=== PATIENT | male | born 1945 | race Caucasian/White ===

== ENCOUNTER 2017-03-28 12:35 | Inpatient (IN) | payer OTHER ==
[2017-03-28] MEDS ORDERED: NON-FORMULARY MEDICATION (Potassium Chloride [Potassium Chloride] 20 MEQ) PO PRN ×22 (13:08)
[2017-03-28] MEDS ORDERED: K-DUR PO PRN (13:20)
[2017-03-28 13:29] LABS: BASOPHILS % (AUTO) 0.3 % (0.0-3.0); EOSINOPHILS # (AUTO) 0.1 K/ul (0.0-0.7); EOSINOPHILS % (AUTO) 0.7 % (0.0-7.0); HEMATOCRIT 43.4 % (42.0-52.0); HEMOGLOBIN 14.6 g/dl (14.0-18.0); IMMATURE GRANULOCYTE % (AUTO) 0.4 % (0.0-5.0); LYMPHOCYTES # (AUTO) 1.4 K/uL (0.60-3.4); LYMPHOCYTES % (AUTO) 11.6 (10.0-50.0); MEAN CORPUSCULAR HEMOGLOBIN 30.5 pg (27.0-31.0); MEAN CORPUSCULAR HGB CONC 33.6 (31.8-35.4); MEAN CORPUSCULAR VOLUME 90.8 fl (80.0-94.0); MONOCYTES # (AUTO) 1.3 K/uL (0.4-2.0); MONOCYTES % (AUTO) 10.8 (0-10); NEUTROPHILS % (AUTO) 76.2; PLATELET COUNT 138 10^3/uL (140-440); RED BLOOD COUNT 4.78 10^6/ul (4.70-6.10); WHITE BLOOD COUNT 11.85 K/ul (4.2-10.2)
[2017-03-28] MEDS: CLEOCIN PO SCH ×2 (14:00→21:42)
[2017-03-28 14:03] LABS: ALBUMIN 3.1 g/dL (3.4-5.0); ALBUMIN/GLOBULIN RATIO 0.94; BILIRUBIN,TOTAL 1.25 mg/dL (0.00-1.20); BUN/CREATININE RATIO 18.81; CALCIUM 9.1 mg/dL (8.2-10.2); CREATININE 1.01 mg/dL (0.60-1.10); TOTAL PROTEIN 6.4 g/dL (5.8-8.1)
[2017-03-28 14:16] VITALS: BMI 42.3
[2017-03-28] MEDS: BACTRIM DS 800/160 MG PO SCH ×2 (14:40→21:41)
[2017-03-28] MEDS: SINEMET 25-100 PO SCH ×2 (14:41→21:42)
--- NOTE | 2017-03-28 14:47 | US ---
EXAM: ULTRASOUND LOWER EXTREMITY VENOUS DOPPLER EXAM HISTORY: Leg edema. FINDINGS: Bilateral lower extremity venous Doppler exam. Real time holm-scale, Doppler spectral anal ysis and color-flow Doppler imaging performed. The veins targeted for evaluation include the common femoral, greater saphenous, profundus, femoral, popliteal, peroneal, anterior tibial and posterior ti bial. Right anterior tibial veins were not seen. The evaluated veins demonstrated normal spontaneous flow and compression without evidence of thrombosis. IMPRESSION: No venous thrombosis identified within the areas evaluated.
[2017-03-28] MEDS ORDERED: LEVODOPA PO SCH ×22 (15:00)
[2017-03-28] MEDS ORDERED: CARBIDOPA PO SCH ×22 (15:00)
[2017-03-28] MEDS: ROCEPHIN 1 GM in SODIUM CHLORIDE 50 ML IV SCH (15:14)
[2017-03-28] MEDS: BETAPACE PO SCH (21:41)
[2017-03-28] MEDS: ELIQUIS PO SCH (21:44)
[2017-03-28] MEDS ORDERED: TYLENOL PO PRN (21:45)
[2017-03-29] MEDS: CLEOCIN PO SCH ×3 (04:40→20:38)
[2017-03-29 05:54] LABS: BASOPHILS % (AUTO) 0.4 % (0.0-3.0); EOSINOPHILS # (AUTO) 0.1 K/ul (0.0-0.7); EOSINOPHILS % (AUTO) 0.6 % (0.0-7.0); HEMATOCRIT 43.1 % (42.0-52.0); HEMOGLOBIN 14.3 g/dl (14.0-18.0); IMMATURE GRANULOCYTE % (AUTO) 0.6 % (0.0-5.0); LYMPHOCYTES # (AUTO) 1.6 K/uL (0.60-3.4); LYMPHOCYTES % (AUTO) 14.1 (10.0-50.0); MEAN CORPUSCULAR HEMOGLOBIN 30.3 pg (27.0-31.0); MEAN CORPUSCULAR HGB CONC 33.2 (31.8-35.4); MEAN CORPUSCULAR VOLUME 91.3 fl (80.0-94.0); MONOCYTES # (AUTO) 1.3 K/uL (0.4-2.0); MONOCYTES % (AUTO) 11.5 (0-10); NEUTROPHILS # (AUTO) 8.1 K/ul (2.0-6.9); NEUTROPHILS % (AUTO) 72.8; PLATELET COUNT 141 10^3/uL (140-440); RED BLOOD COUNT 4.72 10^6/ul (4.70-6.10); WHITE BLOOD COUNT 11.17 K/ul (4.2-10.2)
[2017-03-29 06:19] LABS: ALBUMIN 3.1 g/dL (3.4-5.0); ALBUMIN/GLOBULIN RATIO 0.84; ANION GAP 13.3; BILIRUBIN,TOTAL 1.28 mg/dL (0.00-1.20); BUN/CREATININE RATIO 19.23; CALCIUM 9.3 mg/dL (8.2-10.2); CREATININE 1.04 mg/dL (0.60-1.10); POTASSIUM 4.3 mmol/L (3.5-5.1); TOTAL PROTEIN 6.8 g/dL (5.8-8.1)
[2017-03-29] MEDS ORDERED: TYLENOL PO PRN (08:13)
[2017-03-29] MEDS ORDERED: ATIVAN PO PRN (08:13)
[2017-03-29] MEDS: ELIQUIS PO SCH ×2 (08:51→20:39)
[2017-03-29] MEDS: SINEMET 25-100 PO SCH ×4 (08:51→20:39)
[2017-03-29] MEDS: BETAPACE PO SCH ×2 (08:51→20:38)
[2017-03-29] MEDS: ALPHA LIPOIC ACID 600 MG PO SCH (08:52)
[2017-03-29] MEDS: BACTRIM DS 800/160 MG PO SCH ×2 (08:52→20:39)
[2017-03-29] MEDS: ROCEPHIN 1 GM in SODIUM CHLORIDE 50 ML IV SCH (08:52)
[2017-03-29] MEDS: ARGININE 500 MG PO SCH (08:53)
[2017-03-29] MEDS: THIAMINE PO SCH (08:54)
[2017-03-29] MEDS: CYANOCOBALAMIN 1000 MG PO SCH (09:07)
[2017-03-29] MEDS ORDERED: NON-FORMULARY MEDICATION (Losartan Potassium 50 MG) PO SCH (09:15)
[2017-03-29] MEDS ORDERED: LASIX IVP STA (09:23)
[2017-03-29] MEDS: COZAAR PO SCH (09:28)
[2017-03-29] MEDS ORDERED: ZAROXOLYN PO SCH (11:00)
--- NOTE | 2017-03-29 11:00 | HP ---
DATE OF SERVICE: 03/28/17 REASON FOR HOSPITALIZATION/HISTORY OF PRESENT ILLNESS: Temperature 99.5this AM take Tylenol left knee left swelling/ red discoloration , tender, redness behind knee. Onset 3.6 hours. Gained 5 pounds. Went to walking in clinic last night-Yesterday temperature 102 gave Rocephin and Bactrim ([place]). Shortness of breath yesterday. REVIEW OF SYSTEMS: CONSTITUTIONAL: Fever and fatigue. HEENT: No sinus drainage, no sore throat. RESPIRATORY: No cough, no congestion. CARDIOVASCULAR: No atypical chest pain for coronary artery disease. No angina , CHF symptoms, palpitations. Shortness of breath. GASTROINTESTINAL: No melena or abdominal pain. No GERD. GENITOURINARY: No hematuria, no prostatism, no polyuria. INSURANCE ASSISTANT: No blackout, no dizziness, no headache, no double vision. MUSCULOSKELETAL: Osteoarthritis pain, no joint swelling. ENDOCRINE: No weight loss, Weight gain, 5 pounds. SKIN: Not dry, no rash. PSYCHIATRIC: Not anxious, no depression, no suicidal thoughts, no homicidal thoughts. SOCIAL HISTORY: Marital Status: . Alcohol Usage: No. Tobacco Usage: No. Family History: father , mother . SURGICAL HISTORY: Heart cath Right hip replacement 2 years ago. MEDICAL HISTORY: Sleep apnea-CPAP Atrial fibrillation CHF Hypertension LVH Dyslipidemia Metabolic Syndrome Parkinson's syndrome Diabetes mellitus type 2 MEDICATIONS: Carbidopa-Levo 25-100 one tablet PO three times a day Eliquis 5mg PO twice a day Metolazone 2.5mg PO MOWEFR Potassium Chloride 20mew PO twice a day PRN Alpha lipoic acid 600mg PO daily Vitamin B12 1,000mg PO daily I-Arginine 500mg PO daily Sotalol 40mg PO twice a day Thiamine 100mg PO daily Cozaar 50mg PO daily ALLERGIES: No known allergies PHYSICAL EXAMINATION: V/S: Pulse 80, blood pressure 140/60, temperature 97.2, pulse ox 97.9. GENERAL APPEARANCE: Oriented times three. HEENT: Normal. NECK: No JVP, no bruits. RESPIRATORY: Lungs are clear. CARDIOVASCULAR: S1, S2, no S3, no murmurs. No cyanosis, clubbing. No ascites. GI/ABDOMEN: No tenderness. Bowel sounds are active. EXTREMITIES: Pulses +1, equal. Left lower extremity +1 edema, red, purple discoloration, anterior childers, slight red, tenderness behind left knee. INSURANCE ASSISTANT: Deep tendon reflexes, sensory, motor and gait all normal. RECTAL: Refused colonoscopy/PELVIC: Colocare refused/PROSTATE: 4-17 (2.0). ASSESSMENT: 1. Left leg swelling 2. Left leg cellulitis 3. Fever 4. History of atrial fibrillation 5. CHF 6. Neuropathy 7. Hypertension 8. LVH 9. 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 Admit regular 2. EKG today 3. Telemetry x2 hours 4. Elevate legs 5. Diet regular 6. CBC and CMP today and QAM daily 7. Blood cultures x2 8. Rocephin 1 gram IV now and QAM 9. Clindamycin 300mg PO Q 8 hours 10.Bactrim DS twice a day and one now 11.Venous scan both lower extremities 12.Continue all medications (home) TIME SPENT: More than 70 minutes. MTDD
--- NOTE | 2017-03-29 12:48 | PCM.PROG ---
Attending Provider: ATTENDING PROVIDER: Dr. JUNIOR BARBOSA DATE OF SERVICE: 03/29/17 SUBJECTIVE: This 71 year old WHITE/ M was hospitalized 03/28/17. The patient is seen with Dalia, Nurse Practitioner. The patient is alert, sitting in chair. The patient's pain in leg slightly improved. Left leg has swelling and redness of lower leg slightly worse. He had a fever of 101 last night. REVIEW OF SYSTEMS: CONSTITUTIONAL: Intermittent fever. No night sweats. No fatigue, malaise, lethargy. HEENT: Eyes: No visual changes. No eye pain. No eye discharge. ENT: No runny nose. No epistaxis. No sinus pain. No odynophagia. No congestion. RESPIRATORY: No cough, no congestion. No hemoptysis. No shortness of breath. CARDIOVASCULAR: No angina symptoms. No CHF symptoms. No atypical chest pain for CAD. No palpitations. No orthopnea.. GASTROINTESTINAL: No abdominal pain. No nausea or vomiting. No diarrhea or constipation. No hematemesis. No hematochezia. GENITOURINARY: No urgency. No frequency. No dysuria. No hematuria. No obstructive symptoms. No discharge. No pain. No significant abnormal bleeding. MUSCULOSKELETAL: No musculoskeletal pain; no joint swelling. NEUROLOGICAL: Awake, alert, oriented to time, place and person. No headache. No neck pain. No syncope. No seizures. No dizziness. PSYCHIATRIC: Not anxious. No depression. No suicidal thoughts. No homicidal thoughts. SKIN: No rash. Redness and swelling left lower extremity. ENDOCRINE: No unexplained weight loss. No weight gain. HEMATOLOGIC/LYMPHATIC: No anemia. No purpura. No petechiae. No prolonged or excessive bleeding. No palpable lymph nodes. PHYSICAL EXAMINATION: GENERAL: The patient is awake, alert and oriented, sitting in chair in no distress. VITAL SIGNS: Temperature 97.9 F, Pulse 67, Respiratory Rate 17, BP 131/78, Pulse Ox 95% HEENT: Head normocephalic, atraumatic. Eyes: Extraocular muscles are intact. Pupils are equal, round and reactive to light and accommodation. Ears: No lesions. Nose appeared normal. Throat: No exudate or erythema. NECK: Supple. No JVD, no carotid bruit. No lymphadenopathy or thyromegaly. LUNGS: Clear to auscultation bilaterally with diminished breath sounds. Percussion note normal. Chest symmetrical. HEART: S1, S2, no S3. No murmurs. No cyanosis or clubbing. No ascites. Pulses: Dorsalis pedis and posterior tibial pulses +1 to +2 both sides. ABDOMEN: Soft. Non-tender. Bowel sounds active. No CVA tenderness. No mass felt. EXTREMITIES: Left lower extremity +1 to +2 edema, reddish discoloration below knee to ankle. Full range of motion of all extremities, equal. NEUROLOGIC: No focal deficit. Cranial nerves II through XII are grossly intact. No headache, no double vision or headache. SKIN: Warm and dry Intact. Turgor-normal. LYMPHATIC: No palpable lymph nodes/no lymphedema. MUSCULOSKELETAL: Normal joints with no swelling. Muscle tone is normal. LAB REVIEW: 03/29/17 05:30 03/29/17 05:30 03/29/17 05:30: Sodium 138, Potassium 4.3, Chloride 101, Carbon Dioxide 28, Anion Gap 13.3, BUN 20 H, Creatinine 1.04, Estimated GFR (MDRD) 71.00, BUN/ Creatinine Ratio 19.23, Glucose 119 H, Calcium 9.3, Total Bilirubin 1.28 H, AST 20, ALT 25, Alkaline Phosphatase 60, Total Protein 6.8, Albumin 3.1 L, Globulin 3.7, Albumin/Globulin Ratio 0.84 03/29/17 05:30: WBC 11.17 H, RBC 4.72, Hgb 14.3, Hct 43.1, MCV 91.3, MCH 30.3, MCHC 33.2, RDW Coeff of Nabor 15.1 H, Plt Count 141, Immature Gran % (Auto) 0.6, Neut % (Auto) 72.8, Lymph % (Auto) 14.1, Lander % (Auto) 11.5 H, Eos % (Auto) 0.6 , Baso % (Auto) 0.4, Immature Gran # (Auto) 0.1, Neut # 8.1 H, Lymph # 1.6, Lander # 1.3, Eos # 0.1, Baso # 0.0 03/28/17 13:24: Sodium 138, Potassium 4.0, Chloride 102, Carbon Dioxide 25, Anion Gap 15.0, BUN 19 H, Creatinine 1.01, Estimated GFR (MDRD) 73.00, BUN/ Creatinine Ratio 18.81, Glucose 98, Calcium 9.1, Total Bilirubin 1.25 H, AST 27 , ALT 20, Alkaline Phosphatase 64, Total Protein 6.4, Albumin 3.1 L, Globulin 3.3, Albumin/Globulin Ratio 0.94 03/28/17 13:24: WBC 11.85 H, RBC 4.78, Hgb 14.6, Hct 43.4, MCV 90.8, MCH 30.5, MCHC 33.6, RDW Coeff of Nabor 15.2 H, Plt Count 138 L, Immature Gran % (Auto) 0.4 , Neut % (Auto) 76.2, Lymph % (Auto) 11.6, Lander % (Auto) 10.8 H, Eos % (Auto) 0.7, Baso % (Auto) 0.3, Immature Gran # (Auto) 0.1, Neut # 9.0 H, Lymph # 1.4, Lander # 1.3, Eos # 0.1, Baso # 0.0 ASSESSMENT: 1. LEFT LEG CELLULITIS AND FEVER. PLAN: 1. Continue Tylenol 650 mg q.6 p.r.n. 2. Ativan 1 mg q.h.s p.r.n. 3. Continue Zaroxolyn Plan and coordination of the patient's care discussed in the presence of Top Frame Maker and nurse. CONDITION: Stable SCRIBED BY: NILESH CHRISTINE Mental Health Director scribed while in presence of service performed by Dr. JUNIOR BARBOSA/DALIA DECKER APRN on 03/29/17 ([id number])
[2017-03-30] MEDS: CLEOCIN PO SCH (04:38)
[2017-03-30] MEDS ORDERED: LASIX IVP ONE (05:00)
[2017-03-30 05:25] VITALS: BP 136/81; TEMP 97.7
[2017-03-30 05:29] LABS: BASOPHILS % (AUTO) 0.5 % (0.0-3.0); EOSINOPHILS # (AUTO) 0.1 K/ul (0.0-0.7); EOSINOPHILS % (AUTO) 1.8 % (0.0-7.0); HEMATOCRIT 45.1 % (42.0-52.0); HEMOGLOBIN 14.8 g/dl (14.0-18.0); IMMATURE GRANULOCYTE % (AUTO) 0.8 % (0.0-5.0); LYMPHOCYTES # (AUTO) 1.8 K/uL (0.60-3.4); LYMPHOCYTES % (AUTO) 22.6 (10.0-50.0); MEAN CORPUSCULAR HEMOGLOBIN 29.8 pg (27.0-31.0); MEAN CORPUSCULAR HGB CONC 32.8 (31.8-35.4); MEAN CORPUSCULAR VOLUME 90.9 fl (80.0-94.0); NEUTROPHILS # (AUTO) 4.8 K/ul (2.0-6.9); NEUTROPHILS % (AUTO) 61.3; PLATELET COUNT 150 10^3/uL (140-440); RED BLOOD COUNT 4.96 10^6/ul (4.70-6.10); WHITE BLOOD COUNT 7.75 K/ul (4.2-10.2)
[2017-03-30 05:59] LABS: ALBUMIN 3.3 g/dL (3.4-5.0); ALBUMIN/GLOBULIN RATIO 0.83; ANION GAP 15.9; BILIRUBIN,TOTAL 1.03 mg/dL (0.00-1.20); BUN/CREATININE RATIO 16.41; CALCIUM 9.9 mg/dL (8.2-10.2); CREATININE 1.34 mg/dL (0.60-1.10); POTASSIUM 3.9 mmol/L (3.5-5.1); TOTAL PROTEIN 7.3 g/dL (5.8-8.1)
[2017-03-30] MEDS ORDERED: NON-FORMULARY MEDICATION (Losartan Potassium 50 MG) PO SCH (09:00)
[2017-03-30] MEDS: BACTRIM DS 800/160 MG PO SCH (09:56)
[2017-03-30] MEDS: ALPHA LIPOIC ACID 600 MG PO SCH (09:56)
[2017-03-30] MEDS: BETAPACE PO SCH (09:56)
[2017-03-30] MEDS: ARGININE 500 MG PO SCH (09:56)
[2017-03-30] MEDS: SINEMET 25-100 PO SCH (09:57)
[2017-03-30] MEDS: ROCEPHIN 1 GM in SODIUM CHLORIDE 50 ML IV SCH (09:57)
[2017-03-30] MEDS: ELIQUIS PO SCH (09:57)
[2017-03-30] MEDS: COZAAR PO SCH (09:57)
[2017-03-30] MEDS: CYANOCOBALAMIN 1000 MG PO SCH (09:57)
[2017-03-30] MEDS: THIAMINE PO SCH (09:58)
[2017-04-03 02:09] LABS: IGG P18 AB Absent (.); IGG P23 AB Absent (.); IGG P28 AB Absent (.); IGG P30 AB Absent (.); IGG P39 AB Absent (.); IGG P41 AB Absent (.); IGG P45 AB Absent (.); IGG P58 AB Absent (.); IGG P66 AB Absent (.); IGG P93 AB Absent (.); IGM P39 AB Absent (.); IGM P41 AB Absent (.); LYME IGG WB INTERP Negative (.); LYME IGM WB INTERP Negative (.)
--- NOTE | 2017-04-03 09:22 | PN ---
DATE OF SERVICE: 03/29/17 SUBJECTIVE: 71 year old white male was hospitalized with left leg cellulitis. The patient's cellulitis is a lot better. The patient had fever last night. The patient is on triple antibiotics. He is feeling better. PHYSICAL EXAMINATION: HEENT: Head normocephalic, atraumatic. Eyes: Extraocular muscles are intact. Pupils are equal, round and reactive to light and accommodation. Ears: No lesions. Nose appeared normal. Throat: No exudate or erythema. NECK: Supple. No JVD, no carotid bruit. No lymphadenopathy or thyromegaly. LUNGS: Clear to auscultation. Percussion note normal. Chest symmetrical. HEART: S1, S2, no S3. No murmurs. No cyanosis or clubbing. No ascites. Pulses: Dorsalis pedis and posterior tibial pulses +1 to +2 both sides. ABDOMEN: Soft. Nontender. Bowel sounds active. No CVA tenderness. No mass felt. EXTREMITIES: No edema. Full range of motion of all extremities, equal. Left leg redness in now contained. It has puckering of the skin, No shinny or film feeling has gone. Calf is lose. The patient's venous scan was negative. NEUROLOGIC: No focal deficit. Cranial nerves II through XII are grossly intact. No headache, no double vision or headache. SKIN: Not dry. Intact. Turgor - normal. LYMPHATIC: No palpable lymph nodes/no lymphedema. MUSCULOSKELETAL: Normal joints with no swelling. Muscle tone is normal. PLAN: 1. Continue antibiotics 2. Elevate legs 3. The patient is strongly advised to stay here for a few days but he insists on going home tomorrow and probably he would. The patient was seen and examined with the Nurse Practitioner. TIME SPENT: More than 30 minutes. Plan and coordination of the patient's care discussed in the presence of nurse. HIGINIO
--- NOTE | 2017-04-03 10:41 | PN ---
DATE OF SERVICE: 03/30/17 SUBJECTIVE: 71 year old white male hospitalized with cellulitis of the left leg. The patient 's condition has improved and he doesn't have pain, fever or chills anymore. REVIEW OF SYSTEMS: CONSTITUTIONAL: No night sweats. No fatigue, malaise, lethargy. No fever or chills. HEENT: Eyes: No visual changes. No eye pain. No eye discharge. ENT: No runny nose. No epistaxis. No sinus pain. No sore throat. No odynophagia. No congestion. RESPIRATORY: No cough, no congestion. No hemoptysis. No shortness of breath. CARDIOVASCULAR: No angina symptoms. No CHF symptoms. No atypical chest pain for CAD. No palpitations. No orthopnea. GASTROINTESTINAL: No abdominal pain. No nausea or vomiting. No diarrhea or constipation. No hematemesis. No hematochezia. GENITOURINARY: No urgency. No frequency. No dysuria. No hematuria. No obstructive symptoms. No discharge. No pain. No significant abnormal bleeding. MUSCULOSKELETAL: No musculoskeletal pain; no joint swelling. NEUROLOGICAL: No headache. No neck pain. No syncope. No seizures. No dizziness. PSYCHIATRIC: Not anxious. No depression. No suicidal thoughts. No homicidal thoughts. SKIN: No rash. No lesions. No wounds. ENDOCRINE: No unexplained weight loss. No weight gain. HEMATOLOGIC/LYMPHATIC: No anemia. No purpura. No petechiae. No prolonged or excessive bleeding. No palpable lymph nodes. PHYSICAL EXAMINATION: GENERAL: The patient is oriented to time, place and person. VITAL SIGNS: Temperature 97.7, pulse 58, respiratory rate 16, blood pressure 136/81 and pulse ox 98%. HEENT: Head normocephalic, atraumatic. Eyes: Extraocular muscles are intact. Pupils are equal, round and reactive to light and accommodation. Ears: No lesions. Nose appeared normal. Throat: No exudate or erythema. NECK: Supple. No JVD, no carotid bruit. No lymphadenopathy or thyromegaly. LUNGS:Decreased breath sounds but clear to auscultation. Percussion note normal. Chest symmetrical. HEART: S1, S2, no S3. No murmurs. No cyanosis or clubbing. No ascites. Pulses: Dorsalis pedis and posterior tibial pulses +1 to +2 both sides. ABDOMEN: Soft. Nontender. Bowel sounds active. No CVA tenderness. No mass felt. EXTREMITIES: No edema. Full range of motion of all extremities, equal. Left leg the inflammation and redness on the lateral lower half practically has disappeared with normal puckering of the skin with dark pigmentation, left which is normal looking most of the area, no drainage at all. NEUROLOGIC: No focal deficit. Cranial nerves II through XII are grossly intact. No headache, no double vision or headache. SKIN: Not dry. Intact. Turgor - normal. LYMPHATIC: No palpable lymph nodes/no lymphedema. MUSCULOSKELETAL: Normal joints with no swelling. Muscle tone is normal. LABS: WBC 7,700 normal differential, hgb 14, hct 45, creatinine 1.31, BUN 22 ASSESSMENT: 1. Cellulitis, left lower extremity is under control 2. Cardiovascular status is stable. PLAN: 1. Discharge the patient home. 2. The patient is to be taking Lasix PRN 2-3 times a week along with Potassium tablets. 3. Septra DS to be taken 7 days, the patient has it at home. 4. Clindamycin is new medication 300mg three times a day for 5 days. CONDITION: Stable. TIME SPENT: More than 30 minutes. Plan and coordination of the patient's care discussed in the presence of nurse. HIGINIO
--- NOTE | 2017-04-03 10:56 | DS ---
DATE OF SERVICE: 03/30/17 FINAL DIAGNOSIS: 1. Left leg cellulitis 2. Fever 3. History of atrial fibrillation 4. CHF 5. Neuropathy 6. Hypertension 7. LVH 8. Dyslipidemia 9. 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 Advised to elevate the legs. Rest. If fever or chills happen or swelling go the emergency room as soon as possible. Come back on Saturday for followup. MEDICATIONS AT DISCHARGE: Carbidopa-Levo 25-100mg Odt one tablet three times a day Eliquis 5mg PO twice a day Metolazone 2.5mg PO MOWEFR Alpha Lipoic acid 600mg PO daily Vitamin B12 1,000mg PO daily I-Arginine 500mg PO daily Sotalol 40mg PO twice a day Thiamine 100mg PO daily Cozaar 50mg PO daily Cleocin 300mg PO Q 8 hours Bactrim DS one tablet PO Q 12 hours Lasix 40mg PO three times a day Per week Potassium chloride 10meq PO twice a day PRN NEW PRESCRIPTIONS: Lasix 40mg PO PRN 2-3 a week as needed for leg swelling K-tab to be taken with Lasix PRN Septra DS twice a day for 7 days the patient has it at home given by Deejay Clindamycin 300mg PO three times a day for 5 days. DIET INSTRUCTIONS: Cardiac diet ACTIVITY: Elevate legs SMOKING: Never smoker DISEASE SPECIFIC EDUCATION: New medications Followup Elevate legs HOSPITAL COURSE: 71 year old white male hospitalized with acute cellulitis with fever and chills. The patient's condition improved with IV antibiotics Rocephin 1gram along with Clindamycin and Septra. The patient's legs were elevated and IV Lasix was given for swelling. The patient's condition has improved remarkably within 48 hours. For 36 hours prior to discharge the patient was practically afebrile and felt a lot better. The left leg calf muscle was loose and venous scan was negative. Instruction were given as mention above for the followup which is to be Saturday. Advised to rest keeping the legs elevated. Also advised to go to the emergency room incase of fever, chills and more swelling. The patient's BMI is 42 he is morbidly obese. He is strongly advised to lose weight. CONDITION: Stable TIME SPENT: More than 60 minutes. MTDD
== END 2017-03-30 09:25 | disposition home or self-care (01) | DRG 603 ==
LOC: MEDSURG A 12:35
PROVIDERS: ADMIT Internal Medicine; ATTEND Internal Medicine
DX: L03.116 Cellulitis of left lower limb (principal); Z68.41 Body mass index [BMI] 40.0-44.9, adult; R50.9 Fever, unspecified; I48.91 Unspecified atrial fibrillation; I50.9 Heart failure, unspecified; G62.9 Polyneuropathy, unspecified; I10 Essential (primary) hypertension; I51.7 Cardiomegaly; I12.9 Hypertensive chronic kidney disease with stage 1 through stage 4 chronic kidney disease, or unspecified chronic kidney disease; E11.22 Type 2 diabetes mellitus with diabetic chronic kidney disease; N18.9 Chronic kidney disease, unspecified; E78.5 Hyperlipidemia, unspecified; E88.81 Metabolic syndrome and other insulin resistance; E66.01 Morbid (severe) obesity due to excess calories; M47.9 Spondylosis, unspecified; G47.30 Sleep apnea, unspecified; G20 Parkinson's disease; Z79.01 Long term (current) use of anticoagulants; Z79.899 Other long term (current) drug therapy
CPT/HCPCS: 36415; 80053; 85025; 86617; 87040; 87798; 93005; 93010

== ENCOUNTER 2017-08-23 12:53 | Inpatient (IN) | payer OTHER ==
[2017-08-23 13:16] VITALS: BMI 42.0
[2017-08-23] MEDS ORDERED: TUSSIONEX PO PRN (13:33)
[2017-08-23] MEDS ORDERED: ATROPINE SULFATE PFS IVP PRN (13:33)
[2017-08-23] MEDS ORDERED: VISTARIL INJ IM PRN (13:33)
[2017-08-23] MEDS ORDERED: MORPHINE 4 MG/ML VIAL IVP PRN (13:33)
[2017-08-23] MEDS ORDERED: NITROSTAT SL PRN (13:33)
[2017-08-23] MEDS ORDERED: TYLENOL PO PRN (13:33)
[2017-08-23] MEDS ORDERED: TUSSIONEX PO STA (13:33)
[2017-08-23] MEDS ORDERED: LEVODOPA PO SCH (15:00)
[2017-08-23] MEDS ORDERED: CARBIDOPA PO SCH (15:00)
--- NOTE | 2017-08-23 15:09 | DI ---
EXAM: Chest one view, frontal view only. HISTORY: Cough. COMPARISON: None available. FINDINGS: The heart size is normal. There is no pulmonary vascular congestion. The lungs are clear . No pleural effusion or pneumothorax is seen. No acute osseous abnormality is identified. IMPRESSION: No acute cardiopulmonary process.
[2017-08-23] MEDS: ROCEPHIN 1 GM in SODIUM CHLORIDE 50 ML IV SCH (17:01)
[2017-08-23] MEDS: DEXTROSE 5%-1/2NS IV SOLUTION 1,000 ML IV SCH (17:01)
[2017-08-23] MEDS: ZITHROMAX PO SCH (17:03)
[2017-08-23] MEDS: SINEMET 25-100 PO SCH ×2 (17:03→20:15)
[2017-08-23] MEDS: SOLU-CORTEF 250 MG IVP SCH ×2 (17:03→21:23)
[2017-08-23] MEDS: XOPENEX 1.25 MG NEB SCH ×2 (17:04→23:35)
[2017-08-23] MEDS: APRESOLINE PO SCH (17:18)
[2017-08-23] MEDS: ELIQUIS PO SCH (20:14)
[2017-08-23] MEDS: BETAPACE PO SCH (20:14)
[2017-08-23] MEDS: CATAPRES PO SCH (20:15)
[2017-08-24] MEDS: DEXTROSE 5%-1/2NS IV SOLUTION 1,000 ML IV SCH (03:48)
[2017-08-24] MEDS: XOPENEX 1.25 MG NEB SCH ×4 (04:56→23:27)
[2017-08-24] MEDS: SOLU-CORTEF 250 MG IVP SCH (05:04)
[2017-08-24] MEDS: CATAPRES PO SCH ×3 (08:20→20:54)
[2017-08-24] MEDS: ASPIRIN EC PO SCH (08:20)
[2017-08-24] MEDS: ZITHROMAX PO SCH (08:20)
[2017-08-24] MEDS: COZAAR PO SCH (08:20)
[2017-08-24] MEDS: SINEMET 25-100 PO SCH ×3 (08:20→20:53)
[2017-08-24] MEDS: THIAMINE PO SCH (08:20)
[2017-08-24] MEDS: APRESOLINE PO SCH ×2 (08:20→17:10)
[2017-08-24] MEDS: ELIQUIS PO SCH ×2 (08:20→20:53)
[2017-08-24] MEDS: ROCEPHIN 1 GM in SODIUM CHLORIDE 50 ML IV SCH (08:21)
[2017-08-24] MEDS: BETAPACE PO SCH ×2 (08:21→20:53)
[2017-08-24] MEDS: ALPHA LIPOIC ACID 600 MG PO SCH (08:21)
[2017-08-24] MEDS: ARGININE 500 MG PO SCH (08:22)
[2017-08-24] MEDS: CYANOCOBALAMIN 1000 MG PO SCH (08:22)
[2017-08-24] MEDS ORDERED: NON-FORMULARY MEDICATION (Losartan Potassium 100 MG) PO SCH (09:00)
[2017-08-24] MEDS ORDERED: PREDNISONE PO STA (12:31)
[2017-08-24] MEDS: TAMIFLU PO SCH ×2 (13:49→20:53)
[2017-08-24] MEDS ORDERED: LIDOCAINE HCL 1% SDV SUBCUT STA (18:44)
[2017-08-25] MEDS: XOPENEX 1.25 MG NEB SCH (06:00)
[2017-08-25] MEDS ORDERED: PREDNISONE PO SCH (08:00)
[2017-08-25] MEDS ORDERED: LASIX TAB PO SCH (09:00)
[2017-08-25] MEDS ORDERED: ROCEPHIN IM SCH (09:00)
[2017-08-25] MEDS ORDERED: LIDOCAINE HCL 1% SDV SUBCUT ONE (09:00)
[2017-08-25] MEDS: ASPIRIN EC PO SCH (09:56)
[2017-08-25] MEDS: COZAAR PO SCH (09:57)
[2017-08-25] MEDS: ELIQUIS PO SCH (09:57)
[2017-08-25] MEDS: ZITHROMAX PO SCH (09:57)
[2017-08-25] MEDS: THIAMINE PO SCH (09:58)
[2017-08-25] MEDS: TAMIFLU PO SCH (09:58)
[2017-08-25] MEDS: CATAPRES PO SCH (09:58)
[2017-08-25] MEDS: SINEMET 25-100 PO SCH (09:58)
[2017-08-25] MEDS: BETAPACE PO SCH (10:00)
[2017-08-25] MEDS: CYANOCOBALAMIN 1000 MG PO SCH (10:04)
[2017-08-25] MEDS: ARGININE 500 MG PO SCH (10:06)
[2017-08-25] MEDS: ALPHA LIPOIC ACID 600 MG PO SCH (10:06)
[2017-08-25] MEDS: APRESOLINE PO SCH (10:08)
[2017-08-25 11:13] VITALS: BP 169/86; TEMP 98.2
--- NOTE | 2017-08-26 11:53 | ECHO2D ---
Date of Exam: 08/25/17 Ordering Physician: DR. JUNIOR BARBOSA Room #: [id number] Reason for Echo: SHORT OF BREATH M-Mode Normal Adult Results LV Dimensions Normal Adult Results AoV Opening excursions >1.6 >1.6 LVEDD-base- 3.5-5.8 6.0 Ao root dimensions 2.0-3.7 3.6 LVESD-base- 3.1-4.6 L. Atrium dimensions 1.9-3.8 4.8 Post. Wall thickness 0.8-1.1 1.9 IV septum (thickness) 0.7-1.2 1.6 Post. Wall excursion 0.72-1.3 NORMAL Septal motion NORMAL Systolic motion R. Ventricular cavity 1.5-2.0 NORMAL LVEF 60% 54% Paradoxical septal wall motion NORMAL 2-D : ENLARGED LEFT ATRIAL AND LEFT VENTRICLE CAVITIES, NORMAL LEFT VENTRICULAR CONTRACTILITY-NO EFFUSION, NO THROMBUS, NORMAL VALVES M-MODE: MV: NORMAL AV: NORMAL TV: NORMAL PV: CHAMBER SIZE: ENLARGED LEFT ATRIAL AND LEFT VENTRICLE CAVITIES WALL MOTION: NORMAL PERICARDIUM: NORMAL INTERPRETATION: 1. MODERATE LEFT VENTRICULAR HYPERTROPHY WITH ENLARGED LEFT ATRIAL CAVITY (4.8 CM) 2. ENLARGED LEFT VENTRICLE CAVITY 3. NORMAL LEFT VENTRICULAR CONTRACTILITY, LEFT VENTRICULAR EJECTION FRACTION 50 TO 55% 4. STIFF LEFT VENTRICLE WITH DIASTOLIC DYSFUNCTION MTDD
--- NOTE | 2017-08-28 15:16 | DS ---
DATE OF SERVICE: 08/25/17 FINAL DIAGNOSIS: 1. Acute bronchitis/pneumonitis 2. Influenza B positive with flu syndrome 3. Dehydration 4. History of atrial fibrillation 5. Congestive heart failure 6. Neuropathy 7. Hypertension 8. LVH 9. 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 Sleep apnea on CPAP 13.Chronic kidney disease stage 3 14.Parkinson's Syndrome 15.Diabetes Mellitus type 2 16.Bulging disc DISCHARGE INSTRUCTIONS: Discharge the patient home. Continue the rest of the medications. Clonidine for blood pressure more than 150 he knows about it. Instruction to go to the emergency room if there is any fever and chills. Also see him on Saturday at 9am. MEDICATIONS AT DISCHARGE: Carbidopa/Levodopa one tablet PO three times a day Apixaban 5mg PO twice a day Alpha lipoic acid 600mg PO daily Vitamin B12 1,000mg PO daily Arginine 500mg PO daily Sotalol 40mg PO twice a day Thiamine 100mg PO daily Cozaar 100mg PO daily Clonidine 0.1mg PO twice a day Hydralazine 50mg PO twice a day Lasix 20mg PO Q 48 hours NEW PRESCRIPTIONS: Tamiflu 75mg twice a day for 5 days Prednisone 10mg twice a day for 5 days Keflex 500mg twice a day for 5 days Zithromax 500mg total dose given three of them. DIET INSTRUCTIONS: Regular diet ACTIVITY: Get plenty of rest and drink plenty of fluids. SMOKING: Never smoker DISEASE SPECIFIC EDUCATION: Followup Medications Influenza A Antibiotics and side effects. HOSPITAL COURSE: 72 year old white male hospitalized with Influenza B positive with flu syndrome with high fever, cough, hemoptysis. The patient's condition improved remarkably with steroids, NEBS, antibiotics, IV Fluids. He started feeling a lot better, in fact in 24 hours he wanted to go home. He was explained about staying my himself. He is infective to other people and also advised to take his medication on regular basis. He is morbidly obese with BMI of 42. He is strongly advised to lose weight. His echo LVH moderate with dilated LV cavity. CONDITION: Stable. TIME SPENT: More than 60 minutes. [facility]
--- NOTE | 2017-08-28 15:17 | PN ---
08/23/17: Level 5 08/24/17: Intermediate 08/25/17: D as in discharge MTDD
--- NOTE | 2017-08-29 13:14 | PN ---
DATE OF SERVICE: 08/24/17 SUBJECTIVE: 72 year old white male hospitalized with acute pneumonitis and influenza B positive. The patient was admitted with high fever, shortness of breath, cough and congestion. The patient's condition has improved remarkably. He wants to go home. He is very impatient and very anxious. Complaining about everything is being done. REVIEW OF SYSTEMS: CONSTITUTIONAL: No night sweats. No fatigue, malaise, lethargy. No fever or chills. HEENT: Eyes: No visual changes. No eye pain. No eye discharge. ENT: No runny nose. No epistaxis. No sinus pain. No sore throat. No odynophagia. No congestion. RESPIRATORY: Mild cough, no congestion. No hemoptysis. No shortness of breath. CARDIOVASCULAR: No angina symptoms. No CHF symptoms. No atypical chest pain for CAD. No palpitations. No orthopnea. No PND. GASTROINTESTINAL: No abdominal pain. No nausea or vomiting. No diarrhea or constipation. No hematemesis. No hematochezia. GENITOURINARY: No urgency. No frequency. No dysuria. No hematuria. No obstructive symptoms. No discharge. No pain. No significant abnormal bleeding. MUSCULOSKELETAL: No musculoskeletal pain; no joint swelling. NEUROLOGICAL: No headache. No neck pain. No syncope. No seizures. No dizziness. PSYCHIATRIC: Not anxious. No depression. No suicidal thoughts. No homicidal thoughts. SKIN: No rash. No lesions. No wounds. ENDOCRINE: No unexplained weight loss. No weight gain. HEMATOLOGIC/LYMPHATIC: No anemia. No purpura. No petechiae. No prolonged or excessive bleeding. No palpable lymph nodes. PHYSICAL EXAMINATION: GENERAL: The patient is oriented to time, place and person. VITAL SIGNS: Temperature 98, pulse 60, respiratory rate 20, blood pressure 160/ 80 and pulse ox 92%. HEENT: Head normocephalic, atraumatic. Eyes: Extraocular muscles are intact. Pupils are equal, round and reactive to light and accommodation. Ears: No lesions. Nose appeared normal. Throat: No exudate or erythema. NECK: Supple. No JVD, no carotid bruit. No lymphadenopathy or thyromegaly. LUNGS:Decreased breath sounds but clear to auscultation. Percussion note normal. Chest symmetrical. HEART: S1, S2, no S3. No murmurs. No cyanosis or clubbing. No ascites. Pulses: Dorsalis pedis and posterior tibial pulses +1 to +2 both sides. ABDOMEN: Soft. Nontender. Bowel sounds active. No CVA tenderness. No mass felt. EXTREMITIES: No edema. Full range of motion of all extremities, equal. NEUROLOGIC: No focal deficit. Cranial nerves II through XII are grossly intact. No headache, no double vision or headache. SKIN: Not dry. Intact. Turgor - normal. LYMPHATIC: No palpable lymph nodes/no lymphedema. MUSCULOSKELETAL: Normal joints with no swelling. Muscle tone is normal. LABS: Hgb 14, hct 42, WBC 3,400 normal differential, creatinine 1, BUN 17, potassium 4.2, CK-MB negative. ASSESSMENT: 1. Acute pneumonitis/bronchitis 2. Influenza B positive. PLAN: 1. Continue antibiotics Rocephin and Zithromax along with Tamiflu, steroids and NEBS treatment. 2. The patient runs high blood pressure especially in the hospital situation. At home he says that his blood pressure is always less than 140/80. CONDITION: Stable. TIME SPENT: More than 30 minutes. Plan and coordination of the patient's care discussed in the presence of nurse. HIGINIO
--- NOTE | 2017-08-29 13:20 | PN ---
DATE OF SERVICE: 08/25/17 SUBJECTIVE: The patient is up and about doing well and wants to go home. Low grade fever at 99. is in the room. She says that if you don't let him go home then he may sign out. I discussed with him that his condition is stable but he needs to take his medication on regular basis. He had his blood pressure taken again after it was taken and I took it and it was 160/84. REVIEW OF SYSTEMS: CONSTITUTIONAL: No night sweats. No fatigue, malaise, lethargy. No fever or chills. HEENT: Eyes: No visual changes. No eye pain. No eye discharge. ENT: No runny nose. No epistaxis. No sinus pain. No sore throat. No odynophagia. No congestion. RESPIRATORY: No cough, no congestion. No hemoptysis. No shortness of breath. CARDIOVASCULAR: No angina symptoms. No CHF symptoms. No atypical chest pain for CAD. No palpitations. No orthopnea. GASTROINTESTINAL: No abdominal pain. No nausea or vomiting. No diarrhea or constipation. No hematemesis. No hematochezia. GENITOURINARY: No urgency. No frequency. No dysuria. No hematuria. No obstructive symptoms. No discharge. No pain. No significant abnormal bleeding. MUSCULOSKELETAL: No musculoskeletal pain; no joint swelling. NEUROLOGICAL: No headache. No neck pain. No syncope. No seizures. No dizziness. PSYCHIATRIC: Not anxious. No depression. No suicidal thoughts. No homicidal thoughts. SKIN: No rash. No lesions. No wounds. ENDOCRINE: No unexplained weight loss. No weight gain. HEMATOLOGIC/LYMPHATIC: No anemia. No purpura. No petechiae. No prolonged or excessive bleeding. No palpable lymph nodes. PHYSICAL EXAMINATION: GENERAL: The patient is oriented to time, place and person VITAL SIGNS: Pulse 72, respiratory 20, blood pressure 160/84 and pulse ox 92% on room air. HEENT: Head normocephalic, atraumatic. Eyes: Extraocular muscles are intact. Pupils are equal, round and reactive to light and accommodation. Ears: No lesions. Nose appeared normal. Throat: No exudate or erythema. NECK: Supple. No JVD, no carotid bruit. No lymphadenopathy or thyromegaly. LUNGS: Clear to auscultation. Percussion note normal. Chest symmetrical. HEART: S1, S2, no S3. No murmurs. No cyanosis or clubbing. No ascites. Pulses: Dorsalis pedis and posterior tibial pulses +1 to +2 both sides. ABDOMEN: Soft. Nontender. Bowel sounds active. No CVA tenderness. No mass felt. EXTREMITIES: No edema. Full range of motion of all extremities, equal. NEUROLOGIC: No focal deficit. Cranial nerves II through XII are grossly intact. No headache, no double vision or headache. SKIN: Not dry. Intact. Turgor - normal. LYMPHATIC: No palpable lymph nodes/no lymphedema. MUSCULOSKELETAL: Normal joints with no swelling. Muscle tone is normal. LABS: I did echocardiogram which showed enlarged LV cavity, moderate LVH, enlarged LA cavity and inocencia LV contractility with almost normal LV contractility with stiff left ventricle. ASSESSMENT: 1. Acute pneumonitis/bronchitis 2. Influenza B positive. PLAN: 1. Discharge him home on Tamiflu, Keflex and Prednisone 2. Advised if any problem go to the emergency room 3. I will see him on Saturday morning and today is Saturday. TIME SPENT: More than 30 minutes. Plan and coordination of the patient's care discussed in the presence of nurse. HIGINIO
== END 2017-08-25 12:05 | disposition home or self-care (01) | DRG 194 ==
LOC: MEDSURG B 12:53
PROVIDERS: ADMIT Internal Medicine; ATTEND Internal Medicine
DX: J10.08 Influenza due to other identified influenza virus with other specified pneumonia (principal); I50.1 Left ventricular failure, unspecified; E86.0 Dehydration; I48.91 Unspecified atrial fibrillation; I50.9 Heart failure, unspecified; G62.9 Polyneuropathy, unspecified; I10 Essential (primary) hypertension; E78.5 Hyperlipidemia, unspecified; M47.9 Spondylosis, unspecified; G47.30 Sleep apnea, unspecified; I12.9 Hypertensive chronic kidney disease with stage 1 through stage 4 chronic kidney disease, or unspecified chronic kidney disease; N18.3 Chronic kidney disease, stage 3 (moderate); G20 Parkinson's disease; E11.9 Type 2 diabetes mellitus without complications; E88.81 Metabolic syndrome and other insulin resistance; Z79.01 Long term (current) use of anticoagulants
CPT/HCPCS: 36415; 80053; 81001; 82550; 82553; 84484; 85025; 87070; 87502; 93005; 93010; 94640; 99223; 99232; 99239